=== PATIENT | female | born 1950 | race Caucasian/White ===

== ENCOUNTER 2019-09-22 14:08 | Inpatient (IN) ==
[2019-09-22] MEDS ORDERED: DILTIAZEM 50 MG/10 ML VIAL IV STA (14:49)
[2019-09-22] MEDS ORDERED: ASPIRIN 325 MG TABLET PO STA (14:49)
[2019-09-22 15:00] LABS: Basophils # 0.1 10*3/uL (0.0-0.2); Basophils % 0.6 % (0.0-0.8); Eosinophils # 0.1 10*3/uL (0.0-0.87); Eosinophils % 0.8 % (0.00-10.9); Hematocrit 47.1 VOL% (35.7-47.0); Hemoglobin 15.5 GM/DL (12.0-16.0); Immature Granulocytes % 0.6 %; Immature Granulocytes Absolute 0.06 #; Lymphocytes # 1.7 10*3/uL (1.4-4.0); Lymphocytes % 18.1 % (21.3-54.2); Mean Corpuscular HGB Conc 32.9 GM/DL (32-36); Mean Corpuscular Volume 85.9 FL (87-102); Mean Platelet Volume 9.6 FL (9.6-12.0); Monocytes % 9.9 % (1.7-12.7); Platelet Count 482 T/CUMM (130-400); Red Blood Count 5.48 MC/CUMM (3.8-5.5); Red Cell Distribution Width 13.5 % (9.3-17.3); White Blood Count 9.6 T/CUMM (4-12)
[2019-09-22] MEDS ORDERED: dilTIAZem Drip 125 MG/125 ML PREMIX IV SCH (15:00)
[2019-09-22] MEDS ORDERED: DILTIAZEM 25 MG/5 ML VIAL IV ONE (15:03)
[2019-09-22 15:10] LABS: INR 0.9
[2019-09-22 15:18] LABS: Alanine Aminotransferase 39 U/L (13-56); Alkaline Phosphatase 121 U/L (45-117); Aspartate Amino Transferase 38 U/L (0-37); Blood Urea Nitrogen 16 MG/DL (7-18); Calcium 9.6 MG/DL (8.5-10.1); Estimated Glom Filtration Rate 58 ML/MIN; Free T4 (Free Thyroxine) 2.48 NG/DL (0.76-1.46); Glucose 120 MG/DL (74-106); Osmolality,Calculated 271.1 MOS/KG (273-304); Thyroid Stimulating Hormone < 0.005 uIU/ml (0.358-3.74); Total Protein 8.3 G/DL (6.4-8.3)
[2019-09-22 15:31] LABS: Apearance,Urine CLEAR (Clear); Bacteria,Urine Occasional /HPF (Few); Barbiturates Screen,Urine Negative (Negative); Benzodiazepines Screen,Urine Negative (Negative); Bilirubin,Urine Negative (Negative); Blood, Urine Negative (Negative); Cannabinoid Screen,Urine Negative (Negative); Glucose,Urine (UA) Negative (Negative); Hyaline Casts,Urine 38 /LPF (0-3); Ketones,Urine 20 mg/dL (Negative); Mucus,Urine Occasional /LPF (Occasional); Nitrite,Urine Negative (Negative); Opiate Screen,Urine Negative (Negative); Phencyclidine Screen,Urine Negative (Negative); Protein,Urine Negative; RBC,Urine 4 /HPF (0-4); Squamous Epithelial Cell,Urine Occasional /HPF (0-10); Urine Color Yellow (Yellow); Urine Specific Gravity 1.015 (1.001-1.035); Urine Urobilinogen < 2.0 EU/DL (0.2-1.0); WBC,Urine 6 /HPF (0-6)
[2019-09-22] MEDS ORDERED: ONDANSETRON 4 MG/2 ML VIAL IV PRN (16:09)
[2019-09-22] MEDS ORDERED: DEXTROSE 50% 25 GM/50 ML VIAL IV PRN (16:09)
[2019-09-22] MEDS ORDERED: GLUCAGON 1 MG VIAL IM PRN (16:09)
[2019-09-22] MEDS ORDERED: BISACODYL 5 MG TABLET PO PRN (16:09)
[2019-09-22] MEDS: PROPRANOLOL 20 MG TABLET PO SCH ×2 (18:28→23:21)
[2019-09-22] MEDS: MELATONIN 3 MG TABLET PO SCH (21:38)
[2019-09-22] MEDS: ZALEPLON 5 MG CAPSULE PO PRN ×2 (21:40→23:21)
[2019-09-23] MEDS: PROPRANOLOL 20 MG TABLET PO SCH ×2 (06:17→11:51)
[2019-09-23] MEDS: ENOXAPARIN 80 MG/0.8 ML SYRINGE SUBCUT SCH ×2 (08:48→21:19)
[2019-09-23] MEDS: PROPRANOLOL 40 MG TABLET PO SCH ×2 (17:44→23:59)
[2019-09-23] MEDS: ZALEPLON 5 MG CAPSULE PO PRN ×2 (21:19→23:59)
[2019-09-23] MEDS: MELATONIN 3 MG TABLET PO SCH (21:19)
[2019-09-24 06:04] VITALS: BP 136/68
[2019-09-24] MEDS: PROPRANOLOL 40 MG TABLET PO SCH (06:10)
[2019-09-24] MEDS: ENOXAPARIN 80 MG/0.8 ML SYRINGE SUBCUT SCH (09:29)
== END 2019-09-24 09:15 | disposition home or self-care (01) | DRG 310 ==
LOC: N.ED 14:08 → N.EDINP 16:09 → SUATTDRO 16:09 → N.TELEN 16:53
PROVIDERS: ADMIT Internal Medicine Cardiovascular Disease; ATTEND Internal Medicine

== ENCOUNTER 2020-12-09 09:42 | Observation (INO) ==
[2020-12-09] MEDS ORDERED: DILTIAZEM 50 MG/10 ML VIAL IV STA (10:04)
[2020-12-09] MEDS ORDERED: ENOXAPARIN 100 MG/ML SYRINGE SUBCUT STA (10:04)
[2020-12-09] MEDS ORDERED: ONDANSETRON 4 MG/2 ML VIAL ONE (10:11)
[2020-12-09 10:15] LABS: Basophils % 0.2 % (0.0-0.8); Eosinophils # 0.1 10*3/uL (0.0-0.87); Eosinophils % 0.7 % (0.00-10.9); Hematocrit 43.6 VOL% (35.7-47.0); Hemoglobin 14.8 GM/DL (12.0-16.0); Immature Granulocytes % 0.6 %; Immature Granulocytes Absolute 0.05 #; Lymphocytes # 1.1 10*3/uL (1.4-4.0); Mean Corpuscular HGB Conc 33.9 GM/DL (32-36); Mean Platelet Volume 10.2 FL (9.6-12.0); Monocytes % 12.5 % (1.7-12.7); Platelet Count 262 T/CUMM (130-400); Red Blood Count 5.07 MC/CUMM (3.8-5.5); Red Cell Distribution Width 13.4 % (9.3-17.3); White Blood Count 8.2 T/CUMM (4-12)
[2020-12-09] MEDS ORDERED: SODIUM CHLORIDE 0.9% 1,000 ML IV STA (10:21)
[2020-12-09] MEDS ORDERED: ONDANSETRON 4 MG/2 ML VIAL IV STA (10:21)
[2020-12-09] MEDS ORDERED: MAGNESIUM SULF RIDER 4 GM/100 ML PREMIX IV PRN (10:39)
[2020-12-09] MEDS ORDERED: ACETAMINOPHEN 325 MG TABLET PO PRN (10:39)
[2020-12-09] MEDS ORDERED: guaiFENesin/DM ER 600-30 MG TABLET PO PRN (10:39)
[2020-12-09] MEDS ORDERED: DOCUSATE SODIUM 100 MG CAPSULE PO PRN (10:39)
[2020-12-09] MEDS ORDERED: hydrALAZINE 20 MG/1 ML VIAL IV PRN (10:39)
[2020-12-09] MEDS ORDERED: POTASSIUM CHLORIDE 20 MEQ TABLET PO PRN (10:39)
[2020-12-09] MEDS ORDERED: ONDANSETRON 4 MG/2 ML VIAL IV PRN (10:39)
[2020-12-09] MEDS ORDERED: diphenhydrAMINE CAP 25 MG CAPSULE PO PRN (10:39)
[2020-12-09] MEDS ORDERED: ALUMINUM/MAGNES/SIMETH MAX STR 30 ML UDCUP PO PRN (10:39)
[2020-12-09] MEDS ORDERED: ZALEPLON 5 MG CAPSULE PO PRN (10:39)
[2020-12-09] MEDS ORDERED: MORPHINE 4 MG/1 ML VIAL IV PRN (10:39)
[2020-12-09] MEDS ORDERED: MAGNESIUM SULF RIDER 2 GM/50 ML PREMIX IV PRN (10:39)
[2020-12-09] MEDS ORDERED: AZITHROMYCIN INJ 500 MG in SODIUM CHLORIDE 0.9% 250 ML IV SCH (11:30)
[2020-12-09] MEDS ORDERED: cefTRIAXone 1,000 MG in SODIUM CHLORIDE 0.9% 100 ML IV SCH (11:30)
[2020-12-09] MEDS ORDERED: METOPROLOL TARTRATE 25 MG TABLET PO STA (11:39)
[2020-12-09 12:56] LABS: Albumin 3.5 G/DL (3.4-5.0); Bilirubin,Total 0.9 MG/DL (0.2-1.0); Calcium 8.4 MG/DL (8.5-10.1); Osmolality,Calculated 256.2 MOS/KG (273-304); Potassium 3.5 MMOL/L (3.5-5.1); Thyroid Stimulating Hormone 2.33 uIU/ml (0.358-3.74)
[2020-12-09] MEDS ORDERED: POTASSIUM CHLORIDE 20 MEQ TABLET PO ONE (13:54)
[2020-12-09] MEDS: SODIUM CHLORIDE 0.9% 1,000 ML IV SCH (14:15)
[2020-12-09] MEDS: ALBUTEROL/IPRATROPIUM 3 ML NEB RESP TX SCH ×2 (14:54→19:31)
[2020-12-09] MEDS: methylPREDNISolone SOD SUC 125 MG/2 ML VIAL IV SCH (18:41)
[2020-12-09 19:31] LABS: Basophils % 0.2 % (0.0-0.8); Eosinophils % 0.4 % (0.00-10.9); Hematocrit 37.7 VOL% (35.7-47.0); Hemoglobin 12.7 GM/DL (12.0-16.0); Immature Granulocytes % 0.6 %; Immature Granulocytes Absolute 0.06 #; Lymphocytes # 1.2 10*3/uL (1.4-4.0); Lymphocytes % 12.8 % (21.3-54.2); Mean Corpuscular HGB Conc 33.7 GM/DL (32-36); Mean Corpuscular Volume 87.7 FL (87-102); Monocytes % 10.5 % (1.7-12.7); Neutrophils % 75.5 % (38.7-73.9); Platelet Count 228 T/CUMM (130-400); Red Cell Distribution Width 13.6 % (9.3-17.3); White Blood Count 9.3 T/CUMM (4-12)
[2020-12-09] MEDS: guaiFENesin/DM ER 600-30 MG TABLET PO SCH (21:28)
[2020-12-09] MEDS: ASCORBIC ACID 500 MG TABLET PO SCH (21:28)
[2020-12-09] MEDS: BENZONATATE 100 MG CAPSULE PO SCH (21:29)
[2020-12-09] MEDS: METOPROLOL TARTRATE 25 MG TABLET PO SCH (21:29)
[2020-12-09] MEDS: APIXABAN 5 MG TABLET PO SCH (21:29)
[2020-12-10] MEDS: SODIUM CHLORIDE 0.9% 1,000 ML IV SCH ×2 (00:53→07:12)
[2020-12-10 01:24] LABS: Hematocrit 35.5 VOL% (35.7-47.0); Hemoglobin 12.4 GM/DL (12.0-16.0); Immature Granulocytes % 0.4 %; Immature Granulocytes Absolute 0.04 #; Lymphocytes # 0.5 10*3/uL (1.4-4.0); Lymphocytes % 5.3 % (21.3-54.2); Mean Corpuscular HGB Conc 34.9 GM/DL (32-36); Mean Corpuscular Volume 85.3 FL (87-102); Mean Platelet Volume 10.1 FL (9.6-12.0); Monocytes % 2.1 % (1.7-12.7); Neutrophils % 92.2 % (38.7-73.9); Platelet Count 207 T/CUMM (130-400); Red Blood Count 4.16 MC/CUMM (3.8-5.5); Red Cell Distribution Width 13.5 % (9.3-17.3); White Blood Count 10.2 T/CUMM (4-12)
[2020-12-10] MEDS: ALBUTEROL/IPRATROPIUM 3 ML NEB RESP TX SCH ×2 (01:38→07:32)
[2020-12-10 01:43] LABS: Calcium 8.4 MG/DL (8.5-10.1); Osmolality,Calculated 258.1 MOS/KG (273-304); Potassium 3.9 MMOL/L (3.5-5.1)
[2020-12-10 01:48] LABS: Calcium 8.6 MG/DL (8.5-10.1); Osmolality,Calculated 257.2 MOS/KG (273-304); Potassium 3.8 MMOL/L (3.5-5.1); Risk Ratio 3.81; VLDL CHOLESTEROL 7.8 MG/DL
[2020-12-10 02:08] LABS: Lymphocytes 7 % (20-55); Microcytosis 1+; Platelet Estimate Normal; Segmented Neutrophils 91 % (50-85); Total Cells Counted 100
[2020-12-10] MEDS: methylPREDNISolone SOD SUC 125 MG/2 ML VIAL IV SCH (05:30)
[2020-12-10] MEDS ORDERED: PANTOPRAZOLE 40 MG TABLET PO SCH (09:00)
[2020-12-10] MEDS ORDERED: AMIODARONE 200 MG TABLET PO SCH (09:00)
[2020-12-10] MEDS: APIXABAN 5 MG TABLET PO SCH (09:03)
[2020-12-10] MEDS: guaiFENesin/DM ER 600-30 MG TABLET PO SCH (09:03)
[2020-12-10] MEDS: ASCORBIC ACID 500 MG TABLET PO SCH (09:04)
[2020-12-10] MEDS: BENZONATATE 100 MG CAPSULE PO SCH (09:04)
[2020-12-10] MEDS: METOPROLOL TARTRATE 25 MG TABLET PO SCH (09:05)
[2020-12-10 11:29] VITALS: BP 141/74
== END 2020-12-10 12:29 | disposition home or self-care (01) ==
LOC: N.EDINP 09:42 → N.ED 09:42 → INTOOBSV 10:39 → N.EDINP 17:24 → N.TELES 17:28
PROVIDERS: ADMIT Internal Medicine Cardiovascular Disease; ATTEND Internal Medicine Cardiovascular Disease